=== PATIENT | female | born 1950 | race Caucasian/White ===

== ENCOUNTER 2016-11-19 06:25 | Day surgery (SDC) | payer MEDICARE, OTHER ==
[2016-11-19] MEDS ORDERED: MIDAZOLAM HCL 2 MG/2ML VIAL ONE ×2 (07:27→09:05)
[2016-11-19] MEDS ORDERED: FENTANYL PF 100MCG/2ML AMPUL ONE (07:27)
[2016-11-19] MEDS ORDERED: METOCLOPRAMIDE HCL 10 MG/2 ML VIAL ONE (07:28)
[2016-11-19] MEDS ORDERED: BUPIVACAINE MPF W/EPI 0.25% 30 ML VIAL ONE (08:45)
[2016-11-19] MEDS ORDERED: LIDOCAINE 1% INJ 50 ML MDV IJ ONE (08:45)
[2016-11-19] MEDS ORDERED: BACITRACIN ZINC OINT (15 GM) 15 GM TUBE TP ONE (09:40)
== END 2016-11-19 10:15 | disposition home or self-care (01) ==
LOC: DS 06:25
PROVIDERS: ATTEND Surgery
DX: K60.1 Chronic anal fissure (principal); K62.4 Stenosis of anus and rectum; K64.8 Other hemorrhoids; I10 Essential (primary) hypertension; E66.9 Obesity, unspecified; Z90.710 Acquired absence of both cervix and uterus; Z90.49 Acquired absence of other specified parts of digestive tract
CPT/HCPCS: 46080; A6402 ×2; A6403; J2250 ×2; J2405; J2765 ×2; J3010; J3490 ×2